=== PATIENT | female | born 1935 | race Caucasian/White ===

== ENCOUNTER → 2017-06-02 | Outpatient (CLI) | payer OTHER ==
[~2017-06-02] MED LIST: ATIVAN1 MG PO; CLONAZEPAM; CLONAZEPAM 0.50.5 M1 PO; FOSAMAX 70 MG T70 M1; LIPITOR 20 MG T20 M1 PO; LISINOPRIL-HCT1 EAC1 PO; LISINOPRIL-HCT1 EACH PO; LYRICA25 MG PO; METHOTREXATE 22.5 MG PO; MOBIC15 MG; MOBIC15 MG PO; NORCO 5-325 TA1 EACH PO; OMEPRAZOLE40 MG PO; OXYCODONE HCL 55 MG PO; OXYCONTIN10 M1 PO; PERCOCET PO; PREDNISONE 10 M10 MG PO; SERTRALINE HCL50 MG PO; SIMVASTATIN40 MG PO
== END ==
LOC: M.RAD 10:30
DX: M81.0 Age-related osteoporosis without current pathological fracture (principal); M05.9 Rheumatoid arthritis with rheumatoid factor, unspecified; Z78.0 Asymptomatic menopausal state